=== PATIENT | male | born 1965 | race Caucasian/White ===

== ENCOUNTER → 2020-07-10 14:55 | Outpatient (BNVA) | payer BC, SELFPAY | PROVIDERS: PCP Pediatrics; Visit Provider Specialist | DX: G45.0 Vertebro-basilar artery syndrome (principal); Z86.73 Personal history of transient ischemic attack (TIA), and cerebral infarction without residual deficits; F32.9 Major depressive disorder, single episode, unspecified; G47.30 Sleep apnea, unspecified; F17.210 Nicotine dependence, cigarettes, uncomplicated | CPT/HCPCS: 96116; 99205 ==

== ENCOUNTER → 2020-07-24 10:09 | Outpatient (BNVA) | payer BC, SELFPAY | PROVIDERS: PCP Pediatrics; Visit Provider Specialist | DX: G45.0 Vertebro-basilar artery syndrome (principal); R56.9 Unspecified convulsions; F17.210 Nicotine dependence, cigarettes, uncomplicated | CPT/HCPCS: 95816 ==